=== PATIENT | female | born 1985 | race Caucasian/White ===

== ENCOUNTER → 2024-05-22 | Outpatient (CLI) | payer OTHER, SELFPAY ==
--- NOTE | 2024-05-22 09:41 | EKG12_ITS ---
Test Reason : WEIGHT MANAGEMENT Blood Pressure : / mmHG Vent. Rate : 074 BPM Atrial Rate : 074 BPM P-R Int : 134 ms QRS Dur : 078 ms QT Int : 370 ms P-R-T Axes : -21 000 025 degrees QTc Int : 410 ms Normal sinus rhythm Low voltage QRS Borderline ECG Confirmed by CHRISTINA GONG, TABITHA ([id number]), industrial editor BOB LEWIS ([id number]) on 05/23/2024 10:26:58 AM Referred By: Jennifer Mckeon Confirmed By:ROLO VASQUEZ MD
[2024-05-22 11:09] LABS: Vitamin D,25 Hydroxy 48.4 ng/mL
== END | disposition home or self-care (01) ==
PROVIDERS: Referring Provider Obstetrics & Gynecology; Visit Provider Obstetrics & Gynecology
DX: E66.01 Morbid (severe) obesity due to excess calories (principal); Z13.21 Encounter for screening for nutritional disorder
CPT/HCPCS: 36415; 82306; 93005